=== PATIENT | female | born 2000 | race African-American/Black ===

== ENCOUNTER 2022-04-03 14:33 | Emergency (ER) | payer OTHER ==
[~2022-04-03] VITALS: Ht 162.6 cm; Wt 72.7 kg
[2022-04-03] MEDS ORDERED: ACET-2080 PO (15:49)
[2022-04-03] MEDS ORDERED: PENI500T2 PO (15:49)
[2022-04-03] MEDS ORDERED: CefTRIAXone SODIUM 1 GM/VIAL IM ONE (16:00)
[2022-04-03] MEDS ORDERED: ACETAMINOPHEN/CODEINE 300-30 MG TABLET PO ONE (16:00)
[2022-04-03] MEDS ORDERED: LIDOCAINE/PF 1% 2 ML VIAL IM ONE (16:00)
[2022-04-03 16:02] VITALS: BP 92/40
== END 2022-04-03 16:31 | disposition home or self-care (01) ==
LOC: EMS 14:42
DX: L03.211 Cellulitis of face (principal); K04.7 Periapical abscess without sinus; Z88.8 Allergy status to other drugs, medicaments and biological substances
CPT/HCPCS: 99283; 96372; J0696; J3490